=== PATIENT | male | born 1960 | race Caucasian/White ===

== ENCOUNTER 2020-05-01 10:37 | Outpatient (CLI) | payer BC, SELFPAY ==
--- NOTE | ~2020-05-01 | XR_ITS ---
EXAMINATION: XR shoulder RT min 2V EXAM DATE: 05/01/2020 11:06 INDICATION: No known recent injury provided at this time. Pain of the right shoulder. TECHNIQUE: The following right shoulder projections obtained: frontal projection with internal rotati on, frontal projection with external rotation, Grashey, and scapular Y view (4+ views). There is no prior study for comparison. FINDINGS: No evidence of right shoulder rotator cuff calcific tendinosis. There is mild acromioclavi cular joint primary osteoarthritis. There are no acute fractures or dislocations identified. There i s no subcutaneous gas. The soft tissue is unremarkable. There are no radiopaque foreign bodies. IMPRESSION: Mild right acromioclavicular joint osteoarthritis. Reviewed, dictated and finalized at location A.
--- NOTE | ~2020-05-01 | XR_ITS ---
EXAMINATION: XR_CERV2-3V_CR EXAM DATE: 05/01/2020 11:06 INDICATION: Cervicalgia. Right-sided neck, shoulder pain. TECHNIQUE: Cervical spine frontal, lateral, lateral swimmers, and open-mouth odontoid projections. There is no prior study for comparison. FINDINGS: There is no evidence of acute cervical fracture. The odontoid process is intact. Pre-dens space is normal. Prevertebral soft tissue is normal. There are no soft tissue abnormalities identi fied. There is moderate disc disease at C5-6, mild at C4-5 and C6-7. There is mild to moderate cervi rickie facet and uncovertebral joint arthropathy. The vertebral bodies are aligned in the AP dimension. IMPRESSION: 1. Mild to moderate cervical spondylosis. Reviewed, dictated and finalized at location A.
== END 2020-05-01 10:38 | disposition home or self-care (01) ==
LOC: ANHIMG 10:43
PROVIDERS: PCP Internal Medicine; Visit Provider Nurse Practitioner
DX: M54.2 Cervicalgia (principal); M25.511 Pain in right shoulder; M19.011 Primary osteoarthritis, right shoulder; M47.812 Spondylosis without myelopathy or radiculopathy, cervical region
CPT/HCPCS: 72040; 73030

== ENCOUNTER 2020-05-08 16:03 | Outpatient (CLI) | payer BC, SELFPAY ==
--- NOTE | ~2020-05-08 | MR_ITS ---
EXAMINATION: MR shoulder RT wo con DATE: 05/08/2020 17:13 INDICATION: Right shoulder pain TECHNIQUE: Magnetic resonance imaging (MRI) of the right shoulder was performed without intravenous c ontrast. Sequences included axial PD-weighted FS FSE, coronal oblique PD-weighted FS FSE, coronal obl ique T2-weighted FS FSE, sagittal PD-weighted FS FSE, and sagittal T1-weighted SE. COMPARISON: Right shoulder radiographs dated 05/01/2020 FINDINGS: Coracoacromial arch: The acromion undersurface is curved in morphology (type II). The coracoacromial ligament is normal. M ild acromioclavicular osteoarthritis. Rotator cuff: Moderate supraspinatus and mild infraspinatus tendinopathy. Small full-thickness tear of the anterior supraspinatus tendon measuring 5 mm AP with distal tear margin approximately 1 cm from the superior facet footplate. The tear defect measures approximately 5 mm medial collateral with fluid signal inte rspersed with lax appearing irregular frayed tendon material. The teres minor tendon is normal. Sever e subscapularis tendinopathy. There is a high-grade partial if not full-thickness tear involving the cephalad two thirds of the subscapularis tendon the thickened and frayed medial tear margin is dated approximately 1 cm from the lesser tuberosity footplate. There is intervening lax appearing frayed te ndon material which appears to remain attached to the lesser tuberosity which is of doubtful function al integrity. There is no asymmetric fatty atrophy of the rotator cuff muscles. There is however epim ysial edema extending along both the subscapularis and supraspinatus muscle bellies suggesting rotato r cuff tear is relatively acute consistent with given history of a fall one week prior. Biceps tendon, glenoid labrum and glenohumeral cartilage: Long head of the biceps tendon is normal. There is a tear of the superior to posterior superior gleno id labrum. Mild partial thickness cartilage loss along the cephalad half of the glenoid with smooth c hondral surface. Cartilage the humeral head appears relatively preserved. Fluid: Moderate-sized glenohumeral joint effusion. Small amount of fluid in the subacromial/subdeltoid and s ubcoracoid bursae likely representing extravasation of joint fluid through the full-thickness rotator cuff tears. No loose osteochondral bodies. Small amount of fluid in the subacromial/subdeltoid bursa consistent with mild bursitis. Bones: Normal marrow signal with no edema, fracture or abnormal marrow replacing process. Mild cystic change at the posterior facet of the greater tuberosity likely related to a more chronic rotator cuff disea se.. IMPRESSION: 1. Supraspinatus and subscapularis tendinopathy with small full-thickness tear at the critical zone o f the anterior supraspinatus tendon and high-grade partial or complete tear of the cephalad two third s of the subscapularis tendon. There is associated muscular edema and no fatty atrophy which could be consistent with a relatively recent injury. 2. SLAP tear at the superior to posterior superior glenoid labrum. 3. Moderate sized likely reactive glenohumeral joint effusion with fluid in the subacromial/subdeltoi d and subcoracoid bursae likely extending through the full-thickness rotator cuff tear. Reviewed, dictated and finalized at location A. IMPRESSION: 1. Supraspinatus and subscapularis tendinopathy with small full-thickness tear at the critical zone of the anterior supraspinatus tendon and high-grade partia l or complete tear of the cephalad two thirds of the subscapularis tendon. Ther e is associated muscular edema and no fatty atrophy which could be consistent w ith a relatively recent injury. 2. SLAP tear at the superior to posterior superior glenoid labrum. 3. Mod
== END 2020-05-08 16:04 | disposition home or self-care (01) ==
PROVIDERS: PCP Internal Medicine; Visit Provider Nurse Practitioner
DX: M25.411 Effusion, right shoulder (principal); S43.431A Superior glenoid labrum lesion of right shoulder, initial encounter; X58.XXXA Exposure to other specified factors, initial encounter
CPT/HCPCS: 73221

== ENCOUNTER 2022-02-09 08:34 | Outpatient (CLI) | payer OTHER, SELFPAY ==
[2022-02-09 08:53] LABS: Basophils Absolute Auto 0.1 K/mm3 (0.0-0.1); Basophils Percent Auto 1.5 % (0.2-1.2); Eosinophils Absolute Auto 0.2 K/mm3 (0-0.3); Hematocrit 44.7 % (42.0-52.0); Hemoglobin 14.8 g/dL (14.0-18.0); Immature Granulocyte Absolute 0.01 K/mm3 (0.00-0.031); Immature Granulocyte Percent A 0.2 % (0-0.5); Lymphocytes Absolute Auto 1.63 K/mm3 (0.9-3.2); Lymphocytes Percent Auto 34.5 % (18.3-44.2); Mean Corpuscular HGB Conc 33.1 g/dl (32-36); Mean Corpuscular Hemoglobin 32.5 pg (26-34); Mean Platelet Volume 9.9 fl (7.4-10.4); Monocytes Absolute Auto 0.7 K/mm3 (0.1-0.6); Monocytes Percent Auto 14.2 % (2.6-8.5); Neutrophils Absolute Auto 2.2 K/mm3 (1.3-6.7); Neutrophils Percent Auto 45.6 % (45.5-73.1); Platelet Count Result 271 k/mm3 (150-375); Red Blood Count 4.56 M/mm3 (4.6-6.20); Red Cell Distribution Width 12.7 % (11.5-14.5); White Blood Count 4.7 K/mm3 (4.5-10.0)
[2022-02-09 09:04] LABS: Alanine Aminotransferase 33 U/L (4-50); Albumin Level 4.2 g/dL (3.5-5.1); Alkaline Phosphatase 86 U/L (38-126); Anion Gap 6 mmol/L (8-16); Aspartate Amino Transferase 40 U/L (17-59); Bilirubin,Total 0.6 mg/dL (0.2-1.3); Blood Urea Nitrogen 16 mg/dL (9-20); Carbon Dioxide 28 mmol/L (22-30); Chloride 106 mmol/L (98-107); Cholesterol 225 mg/dL (0-200); Estimated Glomerular Filt Rate > 60; Glucose 105 mg/dL (65-110); HDL Direct 58 mg/dL; Potassium 4.4 mmol/L (3.4-5.0); Sodium 140 mmol/L (137-145); Triglycerides 72 mg/dL (<150)
[2022-02-09 09:15] LABS: LDL Cholesterol Direct 122 mg/dL
[2022-02-09 09:35] LABS: Prostate Specific Antigen 1.3 ng/mL (< OR = 4.0)
== END 2022-02-09 08:35 | disposition home or self-care (01) ==
LOC: ANHLAB 08:37
PROVIDERS: PCP Internal Medicine; Visit Provider Nurse Practitioner
DX: Z13.220 Encounter for screening for lipoid disorders (principal); Z12.5 Encounter for screening for malignant neoplasm of prostate; K27.9 Peptic ulcer, site unspecified, unspecified as acute or chronic, without hemorrhage or perforation
CPT/HCPCS: 36415; 80053; 80061; 84153; 85025; G0103

== ENCOUNTER 2022-08-22 19:32 | Observation (INO) | payer OTHER, SELFPAY ==
--- NOTE | ~2022-08-22 | CT_ITS ---
EXAMINATION: CT abdomen pelvis w con DATE: 08/22/2022 21:10 INDICATION: Abdominal pain TECHNIQUE: Computed tomography (CT) of the abdomen and pelvis was performed with 100 mL Omnipaque-350 intravenous contrast. Automated exposure control and iterative reconstruction technique were employe d. The dose-length product was 865.58 mGy-cm. COMPARISON: None FINDINGS: Atelectasis in the bilateral lower lobes. Heart size is normal. Atherosclerotic coronary artery calci fication. No pericardial or pleural effusion. A couple subcentimeter low-attenuation hepatic cysts. D ecompressed gallbladder, spleen, pancreas, left kidney and bilateral adrenal glands are normal. Subce ntimeter cyst at the lower pole of the right kidney. Bladder is normal. Prostatomegaly. Multiple phle boliths in the pelvis. Bowels including the appendix are normal. No free intraperitoneal gas or fluid . No pathologically enlarged abdominal or pelvic lymphadenopathy. Atherosclerotic calcifications alycia g the normal caliber abdominal aorta and extending to the bilateral iliac arteries. T11 hemangioma. N o acute osseous abnormality. IMPRESSION: 1. No fracture or acute intra-abdominal/pelvic process. Reviewed, dictated and finalized at location A.
--- NOTE | ~2022-08-22 | XR_ITS ---
EXAMINATION: XR chest 1V portable DATE: 08/22/2022 21:25 INDICATION: Unsteady gait 4 days post fall TECHNIQUE: frontal view of the chest was obtained. COMPARISON: Chest radiograph dated 08/19/[address] dated 08/22/2022 FINDINGS: Mild streaky bibasilar atelectasis. A few scattered tiny calcified pulmonary nodules consistent with old granulomatous disease. No other airspace opacities, pulmonary edema, pleural effusion or pneumoth orax. The cardiomediastinal silhouette is normal. Visualized bones and soft tissues are unremarkable. IMPRESSION: 1. Mild bibasilar atelectasis. Reviewed, dictated and finalized at location A.
--- NOTE | ~2022-08-22 | CT_ITS ---
EXAMINATION: CT brain wo con DATE: 08/22/2022 21:01 INDICATION: Fall with loss of consciousness presenting with headache nausea and dizziness TECHNIQUE: Computed tomography (CT) of the head was performed without intravenous contrast. Sagittal and coronal reconstructions were performed. The mA was adjusted according to patient size. Iterative reconstruction technique was employed. The dose-length product was 605.33 mGy-cm. COMPARISON: head CT and brain MR dated 05/20/2017 FINDINGS: No fracture. No acute intracranial hemorrhage, acute infarction or abnormal extra axial fluid collect ion. Ventricles are normal and symmetric. No mass/mass effect. Mild mucosal thickening in the bilater al ethmoid, right maxillary and left sphenoid sinuses. The orbits and mastoid air cells are normal. IMPRESSION: 1. No fracture or acute intracranial process. Reviewed, dictated and finalized at location A.
[2022-08-22 19:53] VITALS: BP 141/80; PULSE 70; RESP 16; TEMP 36.6; O2SAT 97
--- NOTE | 2022-08-22 20:20 | ED.GENADULT ---
HPI - General Adult General Chief complaint: Head Injury Stated complaint: Fall on Friday, diagnosed w/concussion, n/v/h Time Seen by Provider: 08/22/22 20:14 Source: RN notes reviewed History of Present Illness HPI narrative: Patient presents emergency department from home for headache. Patient states that on 08/19/2022 he was approximately 4 rungs up on a ladder when he fell backwards landing on his back and striking his head per the family he was knocked unconscious at that time following this he was taken to [facility] where per the family and the patient he had a CT of his head cervical spine thoracic spine and lumbar spine they are all negative at that time the patient was discharged with prescription for hydrocodone and Zofran states that since that time he has had persistent headaches in the posterior aspect of his head as well as nausea and vomiting and feeling unsteady on his feet he states he last took the [place] around noon today as well as the Zofran he denies any vision changes he denies any numbness or tingling in the extremities denies any chest pain or shortness of breath states he feels generally sore throughout his body patient states when he gets up to ambulate he feels dizzy Related Data Home Medications Medication Instructions Recorded Confirmed omeprazole magnesium 20 mg 20 mg PO DAILY 11/03/19 08/23/22 tablet,delayed release (Prilosec OTC) Allergies Allergy/AdvReac Type Severity Reaction Status Date / Time No Known Allergies Allergy Unknown Verified 08/22/22 20:00 Review of Systems Review of Systems: Gen.: Denies fevers or chills Eyes: Denies eye pain or visual change ENT: Denies congestion Respiratory: Denies shortness of breath or cough CV: Denies chest pain or palpitations GI: Denies abdominal pain reports nausea and vomiting denies burning, urgency, frequency or hematuria Musculoskeletal: reports generalized muscle pains Neuro: See HPI Skin: Denies rash Except as documented, all other systems reviewed and negative PMFSH Past Medical History Medical History Arthritis Hyperlipidemia Joint pain Knee pain Peptic ulcer disease Rupture of ligament Surgical History Surgical History Status post surgical removal of malignant neoplasm of skin Minor Cancer removed 2013 Social History Social History Smoking status: Never smoker Smoking end date: 11/24/77 Alcohol intake: never Drinks per week: 3 Alcohol use details: Pt drinks daily. Substance use: never Spiritual care concerns: No Exam Narrative: APPEARANCE: Well appearing, no apparent distress, well-nourished. HEENT: normocephalic atraumtaic. TMs clear bilaterally. Oral mucosa moist. No facial tenderness EYES: PERRL NECK: Supple. No midline tenderness to palpation. Tender palpation bilateral [place] muscles C5-7 RESPIRATORY: No respiratory distress. Clear to auscultation bilaterally CARDIOVASCULAR: Regular rate and rhythm without murmurs rubs or gallops. ABDOMINAL: Soft, nontender, nondistended, no rebound or guarding MUSCULOSKELETAl: Moves all extremities. No tenderness to palpation of bilateral upper and lower extremities. No clubbing cyanosis or edema Back: No midline thoracic or lumbar tenderness to palpation NEURO: Awake and alert ?3. Follows commands. Speech normal. No focal deficits. SKIN:: Warm, dry. Normal Color Course Course Emergency Course: Reviewed old records in chart the patient had a CT scan of the head C-spine thoracic spine and lumbar spine were all negative following fall Patient was road testing ER continues to be dizzy unstable on his feet notes nausea and headache patient already on [place] and Zofran at home at this time will admit for postconcussive symptoms Discussed with Dr. Pichardo presentation work-up agrees admission
[2022-08-22] MEDS: SODIUM CHLORIDE 0.9% IV 1,000 ML 999 ML IV CONT (20:31)
[2022-08-22] MEDS: ONDANSETRON INJ 4 MG/2 ML VIAL IV PUSH (20:31)
[2022-08-22 20:32] LABS: Basophils Absolute Auto 0.1 K/mm3 (0.0-0.1); Eosinophils Absolute Auto 0.3 K/mm3 (0-0.3); Eosinophils Percent Auto 4.6 % (0-4.4); Hematocrit 41.9 % (42.0-52.0); Hemoglobin 13.9 g/dL (14.0-18.0); Immature Granulocyte Absolute 0.02 K/mm3 (0.00-0.031); Immature Granulocyte Percent A 0.3 % (0-0.5); Lymphocytes Absolute Auto 1.79 K/mm3 (0.9-3.2); Lymphocytes Percent Auto 29.3 % (18.3-44.2); Mean Corpuscular HGB Conc 33.2 g/dl (32-36); Mean Corpuscular Hemoglobin 32.7 pg (26-34); Mean Corpuscular Volume 98.6 fl (80-100); Mean Platelet Volume 10.1 fl (7.4-10.4); Monocytes Absolute Auto 0.8 K/mm3 (0.1-0.6); Monocytes Percent Auto 12.8 % (2.6-8.5); Neutrophils Absolute Auto 3.2 K/mm3 (1.3-6.7); Platelet Count Result 261 k/mm3 (150-375); Red Blood Count 4.25 M/mm3 (4.6-6.20); Red Cell Distribution Width 12.6 % (11.5-14.5); White Blood Count 6.1 K/mm3 (4.5-10.0)
[2022-08-22 20:42] LABS: Alanine Aminotransferase 31 U/L (6-50); Albumin Level 3.7 g/dL (3.5-5.1); Alkaline Phosphatase 75 U/L (38-126); Anion Gap 10 mmol/L (8-16); Aspartate Amino Transferase 27 U/L (17-59); Bilirubin,Total 0.3 mg/dL (0.2-1.3); Blood Urea Nitrogen 13 mg/dL (9-20); Calcium 8.8 mg/dL (8.4-10.2); Carbon Dioxide 26 mmol/L (22-30); Chloride 106 mmol/L (98-107); Estimated CRCL calculation 79 ml/min; Estimated Glomerular Filt Rate > 60; Glucose 104 mg/dL (65-110); INR 1.1; Potassium 3.7 mmol/L (3.4-5.0); Prothrombin Time 13.5 Seconds (11.1-14.7); Sodium 142 mmol/L (137-145)
[2022-08-22 21:30] VITALS: BP 132/74; PULSE 64; RESP 16; O2SAT 100
[2022-08-22 21:51] LABS: Appearance Urine Clear (Clear); Bilirubin Urine Negative (Negative); Blood Urine Negative (Negative); Color Urine Yellow (Yellow); Glucose Urine UA Negative (Negative); Ketones Urine Negative (Negative); Leukocyte Esterase Ur Negative LEU/UL (Negative); Nitrate Urine Negative (Negative); Protein Urine Negative (Negative); Urobilinogen Urine 0.2 mg/dL (<2.0); pH Urine 6.5 (5.0-9.0)
[2022-08-22 21:53] LABS: Add Urine Microscopic? NO
[2022-08-22] MEDS: MORPHINE SULFATE (*CRX) 4 MG/ML INJ IV PUSH (21:59)
[2022-08-22 22:27] LABS: SARS-CoV-2 RNA PCR Negative
[2022-08-22 22:35] VITALS: BP 118/68; PULSE 58; RESP 16; O2SAT 99
[2022-08-22 23:00] VITALS: BP 126/78; PULSE 74; RESP 16; TEMP 36.4; O2SAT 100
[2022-08-22] MEDS: MECLIZINE HCL 25 MG TABLET PO (23:10)
[2022-08-23] VITALS: BP 116/68; PULSE 76; RESP 16; TEMP 36.3; O2SAT 100
[2022-08-23 01:06] VITALS: BP 122/68; PULSE 70; RESP 16; TEMP 36.5; O2SAT 98
[2022-08-23 01:20] VITALS: BMI 23.8
[2022-08-23 01:25] VITALS: BP 128/68; PULSE 52; RESP 18; TEMP 35.9; O2SAT 99
[2022-08-23] MEDS: SODIUM CHLORIDE 0.9% IV 1,000 ML 100 ML IV CONT (01:33)
[2022-08-23] MEDS: traMADol HCL (*CRX) 50 MG TABLET PO (02:15)
[2022-08-23 05:48] VITALS: BP 130/84; PULSE 56; RESP 20; TEMP 36.2; O2SAT 99
[2022-08-23] MEDS: PANTOPRAZOLE 40 MG TABLET PO (08:28)
--- NOTE | 2022-08-23 08:28 | PM.IMHP ---
H&P: HPI History of Present Illness Date/Time: 08/23/22 08:28 Chief Complaint: Headache, nausea & vomiting. [facility] Past Medical History Medical History Arthritis Hyperlipidemia Joint pain Knee pain Peptic ulcer disease Rupture of ligament Surgical History Surgical History Status post surgical removal of malignant neoplasm of skin Minor Cancer removed 2013 Social History Social History Smoking status: Never smoker Smoking end date: 11/24/77 Alcohol intake: never Drinks per week: 3 Alcohol use details: Pt drinks daily. Substance use: never Spiritual care concerns: No Meds Home Medications and Allergies Home Medications Medication Instructions Recorded Confirmed Type omeprazole magnesium 20 mg 20 mg PO DAILY 11/03/19 08/23/22 History tablet,delayed release (Prilosec OTC) celecoxib 200 mg capsule (Celebrex) 200 mg PO DAILY #90 caps 08/09/22 08/23/22 Rx hydrocodone 5 mg-acetaminophen 325 1 tablet PO Q8H PRN pain #10 tabs 08/22/22 08/23/22 Rx mg tablet Allergies Allergy/AdvReac Type Severity Reaction Status Date / Time No Known Allergies Allergy Unknown Verified 08/22/22 20:00 Vital Signs Vital Signs - 24 hr 08/22/22 19:53 08/22/22 22:35 08/22/22 21:30 Temperature 97.9 F Pulse Rate 70 58 L 64 Respiratory Rate 16 16 16 Blood Pressure 141/80 H 118/68 132/74 Pulse Oximetry 97 99 100 Oxygen Delivery Room Air 08/22/22 23:00 08/23/22 00:00 08/23/22 01:06 Temperature 97.6 F 97.4 F L 97.7 F Pulse Rate 74 76 70 Respiratory Rate 16 16 16 Blood Pressure 126/78 116/68 122/68 Pulse Oximetry 100 100 98 Oxygen Delivery 08/23/22 01:25 08/23/22 05:48 Temperature 96.6 F L 97.2 F L Pulse Rate 52 L 56 L Respiratory Rate 18 20 Blood Pressure 128/68 130/84 Pulse Oximetry 99 99 Oxygen Delivery H&P: Results Labs Labs: Short CBC 08/22/22 Range/Units 20:26 WBC 6.1 (4.5-10.0) K/mm3 Hgb 13.9 L (14.0-18.0) g/dL Hct 41.9 L (42.0-52.0) % Plt Count 261 (150-375) k/mm3 BMP 08/22/22 20:26 Sodium 142 Potassium 3.7 Chloride 106 Carbon Dioxide 26 BUN 13 Creatinine 0.90 Glucose 104 Calcium 8.8 Liver Function 08/22/22 Range/Units 20:26 Total Bilirubin 0.3 (0.2-1.3) mg/dL AST 27 (17-59) U/L ALT 31 (6-50) U/L Alkaline Phosphatase 75 (38-126) U/L Albumin 3.7 (3.5-5.1) g/dL Urine 08/22/22 Range/Units 21:40 Urine Color Yellow (Yellow) Urine Appearance Clear (Clear) Urine pH 6.5 (5.0-9.0) Ur Specific [place] 1.010 (1.001-1.035) Urine Protein Negative (Negative) mg/dL Urine Glucose (UA) Negative (Negative) mg/dL
--- NOTE | 2022-08-23 09:07 | WPDNEURCNPN ---
Assessment and Plan Assessment and plan (1) Fall: Code(s): W19.XXXA - Unspecified fall, initial encounter Status: Acute (2) Nausea and vomiting: Code(s): R11.2 - Nausea with vomiting, unspecified Status: Acute (3) Dizziness: Code(s): R42 - Dizziness and giddiness Status: Acute Plan Jayme Cody is a 62 year old male with a history of arthritis, HLD who presented yesterday after sustaining a fall and subsequently developing severe headache, dizziness, and balance issues. These symptoms are likely related to post-concussive syndrome. However, given the positional nature of his symptoms and history of trauma to his back, will need to evaluate for intracranial hypotension secondary to spinal CSF leak. - Obtain CT myelogram of complete spine as outpatient - Avoid treating headaches with narcotics; recommend using Naproxen - If symptoms persist over the next few weeks, will have patient follow-up in [facility] Neurology clinic Consult date: 08/23/22 Time Seen: 09:07 Reason for consult: Headache HPI: Jayme Cody is a 62 year old male with a history of arthritis, HLD who presented yesterday after sustaining a fall and subsequently developing severe headache. On 08/19, patient fell backwards from his ladder and landed on his back as well as hitting his head on the ground. There was loss of consciousness which was reportedly brief although unclear how long it actually lasted. [facility] was [facility] where he had a CT of his complete spine which were all negative for acute process. He was discharged with [place] and Zofran. Since discharge, he has had a persistent headache in the back of his head associated with nausea, vomiting, and balance issues. He feels that his symptoms get worse when he gets up to ambulate. Due to the persistent nature of his symptoms, he presented to [place] ED for evaluation. His CT head was negative for acute process. He was subsequently admitted for treatment of his symptoms. Since yesterday headache and balance issues have improved. Review of Systems Constitutional: Constitutional: Reports no additional constitutional complaints and Denies weakness Eyes: Eyes: Reports no additional eye complaints ENT: Reports system reviewed and no additional complaints, except as documented, Reports Normal hearing present and Denies tinnitus Cardiovascular: Cardiovascular: Reports no additional cardiovascular complaints Respiratory: Respiratory: Reports no additional respiratory complaints Gastrointestinal: Gastrointestinal: Reports nausea Genitourinary: Genitourinary: Reports no additional male genitourinary complaints Musculoskeletal: Musculoskeletal: Reports back pain Integumentary/Breasts: Skin/Breast: Reports system reviewed and no additional complaints, except as docu Neurologic: Reports vertigo and Reports headache(s) Psychiatric: Psychiatric: Reports no additional psychiatric complaints [facility] Past Medical History Medical History Arthritis Hyperlipidemia Joint pain Knee pain Peptic ulcer disease Rupture of ligament Surgical History Surgical History Status post surgical removal of malignant neoplasm of skin Minor Cancer removed 2013 Social History Social History Smoking status: Never smoker Smoking end date: 11/24/77 Alcohol intake: never Drinks per week: 3 Alcohol use details: Pt drinks daily. Substance use: never Spiritual care concerns: No Meds Home Medications and Allergies Home Medications Medication Instructions Recorded Confirmed Type omeprazole magnesium 20 mg 20 mg PO DAILY 11/03/19 08/23/22 History tablet,delayed release (Prilosec OTC) celecoxib 200 mg capsule (Celebrex) 200 mg PO DAILY #90 caps 08/09/22 08/23/22 Rx hydrocodone 5 mg-acetaminophen 325 1 table
[2022-08-23] MEDS: ACETAMINOPHEN/ASPIRIN/CAFFEINE 250-250-65 MG TABLET 1 TABLET PO (11:29)
--- NOTE | 2022-08-23 12:50 | PM.SD2 ---
Same Day Admit/Disch: HPI History of Present Illness Chief complaint: Headache,Nausea & Vomiting, Fall Narrative: Jayme Cody is a 72 yo male with hyperlipidemia, peptic ulcer disease and arthritis. He presented to the ED, from home, for evaluation of headache. He reports on 08/19/2022, he was approximately 4 rungs up on a ladder when he fell backwards landing on his back and striking his head. Per his family, he was knocked unconscious at that time. He was taken to [facility] where he reportedly had a head CT, as well as CTs of his cervical, thoracic, and lumbar spine that were all negative. He was discharged home with his and a prescription for PO hydrocodone/acetaminophen and Zofran as needed. Upon my assessment, the patient is sitting up in bed and irritable at this time. He provides some details of these events, but is overall providing brief answers to most questions. He denies nausea or emesis at this time. His headache in mild and not associated with focal changes. Medical information was obtained from ED and primary care records. The patient reported persistent headaches in the posterior aspect of his head since he was evaluated following his fall on 08/19/22. He reports associated, nausea, vomiting, dizziness with ambulation, and feeling unsteady on his feet. He has been taking [place] for headaches and Zofran PO with minimal relief. He denies vision changes, numbness or tingling in the extremities, chest pain, shortness of breath, rhinorrhea, or paralysis. He has aching pains to his whole body. In the ED, his vitals were stable. CBC, CMP and UA were unremarkable. CT head, CT abdomen/pelvis with contrast and chest x-ray were without acute findings. He was treated with 1 liter NS bolus, acetaminophen 1 gram, morphine 4 mg IV, meclizine 25 mg, phenergan 12.5 mg and zofran 4 mg. Neurology was consulted in the ED and agreeable to see the patient. He was referred for observation for further evaluation. [facility] Past Medical History Medical History Arthritis Hyperlipidemia Joint pain Knee pain Peptic ulcer disease Rupture of ligament Surgical History Surgical History Status post surgical removal of malignant neoplasm of skin Minor Cancer removed 2013 Social History Social History Smoking status: Never smoker Smoking end date: 11/24/77 Alcohol intake: never Drinks per week: 3 Alcohol use details: Pt drinks daily. Substance use: never Spiritual care concerns: No Same Day Admit/Disch: Med Pre-admit Medications Home Medications Medication Instructions Recorded Confirmed Type omeprazole magnesium 20 mg 20 mg PO DAILY 11/03/19 08/23/22 History tablet,delayed release (Prilosec OTC) celecoxib 200 mg capsule (Celebrex) 200 mg PO DAILY #90 caps 08/09/22 08/23/22 Rx hydrocodone 5 mg-acetaminophen 325 1 tablet PO Q8H PRN pain #10 tabs 08/22/22 08/23/22 Rx mg tablet ondansetron 4 mg disintegrating 4 mg PO Q4H PRN nausea and 08/23/22 Rx tablet vomiting #10 tabs Exam Narrative: General:?No acute distress. Nontoxic appearing. Well-developed adult male sitting up in bed. HEENT:?Normocephalic. Atraumatic. PERRL. EOM intact. Sclera anicteric.?Oral mucosa pink and most.?grossly normal hearing. Tongue midline. Oropharynx grossly normal. Nares patent without discharge. Neck:??Supple without lymphadenopathy.? Thyroid without nodularity. No obvious JVD. Neck nontender to palpation. Respiratory:?RR unlabored at rest. Lungs clear to auscultation bilaterally without wheezing, rhonchi or rales. Cardiovascular:??Normal S1 and S2 regular rate and rhythm. No murmurs, gallops or rubs. Gastrointestinal:??Abdomen is soft, nontender, and nondistended with positive bowel sounds. No guarding or suprapubic tenderness. Skin:??Warm and dry.? No rash or lesions
== END 2022-08-23 13:00 | disposition home or self-care (01) ==
LOC: ANHED 20:49 → ANH3MEDSUR 08-23 01:26
PROVIDERS: Admitting Provider Internal Medicine; Emergency Provider Emergency Medicine; PCP Internal Medicine; Visit Provider Nurse Practitioner Family
DX: S06.0X9A Concussion with loss of consciousness of unspecified duration, initial encounter (principal); S00.93XA Contusion of unspecified part of head, initial encounter; S16.1XXA Strain of muscle, fascia and tendon at neck level, initial encounter; W11.XXXA Fall on and from ladder, initial encounter; J98.11 Atelectasis; I25.10 Atherosclerotic heart disease of native coronary artery without angina pectoris; I25.84 Coronary atherosclerosis due to calcified coronary lesion; D18.09 Hemangioma of other sites; E78.5 Hyperlipidemia, unspecified; K27.9 Peptic ulcer, site unspecified, unspecified as acute or chronic, without hemorrhage or perforation; M19.90 Unspecified osteoarthritis, unspecified site; Z20.822 Contact with and (suspected) exposure to COVID-19; Z72.89 Other problems related to lifestyle; Z79.891 Long term (current) use of opiate analgesic; Z79.1 Long term (current) use of non-steroidal anti-inflammatories (NSAID); Z79.899 Other long term (current) drug therapy
CPT/HCPCS: 36415; 70450; 71045; 74177; 80053; 81003; 85025; 85610; 85730; 96365; 96375; 99285; A9270; C9803; G0378; J0131; J2270; J2405; J7030; Q9967; U0003; U0005

== ENCOUNTER 2023-06-22 14:21 | Emergency (ER) | payer OTHER, SELFPAY ==
--- NOTE | ~2023-06-22 | XR_ITS ---
EXAM: XR knee RT 3V DATE: 06/22/2023 14:48 HISTORY: Fall, right knee pain/swelling . COMPARISON: 05/08/2004, images only. FINDINGS: Normal mineralization. No fracture or dislocation. No lytic or blastic lesion. Mild tricom partmental osteoarthritis. Large volume joint fluid. No erosion or periosteal change. Soft tissues wi thin normal limits. IMPRESSION: No acute osseous finding in the right knee. Large right knee joint effusion. Reviewed, dictated and finalized at location K.
[2023-06-22 14:31] VITALS: BP 134/86; PULSE 75; RESP 16; TEMP 36.8; O2SAT 98
--- NOTE | 2023-06-22 14:31 | ED.LOWEXIN ---
HPI - Extremity Injury (Lower) General Chief Complaint: Extremity Injury, Lower Stated Complaint: rt knee inj Source: patient, family and RN notes reviewed History of Present Illness HPI Narrative: 63-year-old male presents to Urgent Care with at side. Patient states yesterday he was getting out the back of a truck when he slipped and fell onto his left knee. Patient states at the time his right knee stayed in the truck causing him to injury it. Pt states he felt a pop in his right knee and felt the pain radiate up his lateral thigh and down his lateral lower leg. Pt reports associated pain with flexion and applied pressure with walking. Pt presents with crutches from home. Pt denies any numbness, tingling, head injury, or other injury during the fall. Pt has been elevating and icing the knee since. Pt did take 400 mg of ibuprofen at home. Related Data Home Medications Medication Instructions Recorded Confirmed omeprazole magnesium 20 mg 20 mg PO DAILY 11/12/22 06/22/23 tablet,delayed release (Prilosec OTC) Allergies Allergy/AdvReac Type Severity Reaction Status Date / Time No Known Allergies Allergy Unknown Verified 06/22/23 14:33 Review of Systems Review of Systems: CONSTITUTIONAL: Denies fever, chills, or sweats. EYES: Denies visual changes, redness, or discharge. ENT: Denies otalgia and sore throat CARDIOVASCULAR: Denies chest pain, palpitations, or edema. RESPIRATORY: Denies cough or dyspnea. GASTROINTESTINAL: Denies abdominal pain, nausea, vomiting, or diarrhea. GENITOURINARY: Denies dysuria or hematuria. SKIN: Denies rash or itching. MUSCULOSKELETAL: right knee pain NEUROLOGIC: Denies headache, numbness, or weakness. Pertinent positives per HPI. [facility] Past Medical History Medical History Arthritis Hyperlipidemia Joint pain Knee pain Peptic ulcer disease Rupture of ligament Surgical History Surgical History Status post surgical removal of malignant neoplasm of skin Minor Cancer removed 2013 Social History Social History (Updated 11/12/22 @ 07:42 by Jazmine Sloan CMA) Smoking status: Never smoker Smoking end date: 11/24/77 Alcohol intake: never Drinks per week: 3 Alcohol use details: Pt drinks daily. Substance use: never Lack of Transportation: No Lack of Food: Never True Current Housing: I Have Housing Concerned About Future Housing: No Difficulty Paying Gas/Electric Bills: No Difficulty Paying for Meds: No Currently Unemployed: No Education: Trade/Vocational Certificate Difficulty w/ Childcare or Family Care: No Spiritual care concerns: No Comments At the time of my signature, I reviewed and agree with the nursing past medical, surgical, social, and family history. There is no relevant family history pertinent to the patient complaint. Exam Narrative: GENERAL: This is a well-nourished, well-developed patient, in no apparent distress. HEAD: normocephalic, atraumatic. EYES: Sclera clear/white. Vision is grossly intact. EARS: External ears normal, auditory canals clear and without drainage. Hearing grossly intact. NOSE: External nose normal with no obvious nasal discharge, nares without redness, no rhinorrhea. THROAT: Mucous membranes moist, posterior pharynx clear. NECK: Neck supple, non-tender without lymphadenopathy, masses or thyromegaly. CARDIOVASCULAR: Regular rate RESPIRATORY: no respiratory distress SKIN: warm, intact with no suspicious lesions or rash, good texture and turgor. NEURO: awake, alert, and oriented to person, place and time. There were no obvious focal neurologic abnormalities. EXTREMITIES: Right knee tenderness over the lateral, superior aspect with swelling noted. Pt is able to flex the affected knee to 90 degrees. Pt is able to extend the affected knee with some assistance. Course
== END 2023-06-22 15:18 | disposition home or self-care (01) ==
PROVIDERS: Emergency Provider Nurse Practitioner Family; PCP Internal Medicine
DX: S83.91XA Sprain of unspecified site of right knee, initial encounter (principal); W17.89XA Other fall from one level to another, initial encounter; Z87.891 Personal history of nicotine dependence; M19.90 Unspecified osteoarthritis, unspecified site; E78.5 Hyperlipidemia, unspecified
CPT/HCPCS: 73562; 99213; G0463; L1830

== ENCOUNTER 2023-11-19 11:00 | Emergency (ER) | payer OTHER, SELFPAY ==
[2023-11-19 11:06] VITALS: BP 138/91; PULSE 83; RESP 16; TEMP 36.5; O2SAT 98
--- NOTE | 2023-11-19 11:20 | ED.URI ---
HPI - URI/Sore Throat General Chief Complaint: Upper Respiratory Infection Stated Complaint: SORE THROAT/CLOGGED EARS/NASAL CONGESTION Time Seen by Provider: 11/19/23 11:20 Source: patient and RN notes reviewed Mode of arrival: ambulatory Limitations: no limitations History of Present Illness HPI Narrative: 63-year-old male presented for complaint of sinus pressure and postnasal drainage, sore throat, pressure in face and teeth, cough, headache and ear pressure. Symptoms for about 3 weeks. Taking Sudafed for symptoms. He denies shortness of breath, wheezing, nausea, vomiting, fevers or chills. Tested negative at home fo covid today. MD elicited complaint: cough Related Data Home Medications Medication Instructions Recorded Confirmed omeprazole magnesium 20 mg 20 mg PO DAILY 11/12/22 11/19/23 tablet,delayed release (Prilosec OTC) Allergies Allergy/AdvReac Type Severity Reaction Status Date / Time No Known Allergies Allergy Unknown Verified 11/19/23 11:14 Review of Systems Review of Systems: CONSTITUTIONAL: Denies malaise, chills, sweats, fever EYES: Denies visual changes, redness, or discharge ENT: Reports rhinorrhea, congestion, sinus pain, otalgia, sore throat CARDIOVASCULAR: Denies chest pain, palpitations, edema RESPIRATORY: Reports cough, post nasal drainage. Denies dyspnea GASTROINTESTINAL: Denies abdominal pain, nausea, vomiting, diarrhea SKIN: Denies rash or itching MUSCULOSKELETAL: Denies myalgia NEUROLOGIC: Reports headache PMFSH Past Medical History Medical History Arthritis Hyperlipidemia Joint pain Knee pain Peptic ulcer disease Rupture of ligament Surgical History Surgical History Status post surgical removal of malignant neoplasm of skin Minor Cancer removed 2013 Family History Family History Unknown Hypertension Social History Social History Smoking status: Never smoker Smoking end date: 11/24/77 Alcohol intake: never Drinks per week: 3 Alcohol use details: Pt drinks daily. Substance use: never Lack of Transportation: No Lack of Food: Never True Current Housing: I Have Housing Concerned About Future Housing: No Difficulty Paying Gas/Electric Bills: No Difficulty Paying for Meds: No Currently Unemployed: No Education: Trade/Vocational Certificate Difficulty w/ Childcare or Family Care: No Gender identity (if verbalized by the patient): Male Spiritual care concerns: No Exam Narrative: GENERAL: mildly Ill-appearing, nontoxic no acute distress. HEAD: Normocephalic EYES: PERRLA, conjunctivae clear ENT: Mucous membranes moist. TMs pearly jackson with dull light reflex and clear effusion bilaterally; no tragal tenderness. Oropharynx not erythematous without lesions or exudate, no drooling, no hoarseness, no trismus, uvula midline. No tripod positioning, muffled voice, soft palate or pharyngeal wall bulging NECK: Supple. No lymphadenopathy CHEST: Clear to auscultation, breath sounds equal. No wheezing, rhonchi, rales, or stridor. No respiratory distress, speaks in full sentences. HEART: Regular rate and rhythm. No murmur heard. SKIN: Warm, dry, no rash. NEURO: Alert and oriented x3. PSYCH: Normal mood and affect Course Course Emergency Course: Patient is aware of diagnosis, understands and agrees to treatment plan. Anticipatory guidance given. Patient agrees to follow-up as directed and is aware of reasons to seek care at the emergency department. Portions of this record may have been created with voice recognition software Level of Care: Express Care Visit Vital Signs Vital signs: Vital Signs Temperature 97.7 F 11/19/23 11:06 Pulse Rate 83 11/19/23 11:06 Respiratory Rate 16 11/19/23 11:06 Blo
== END 2023-11-19 11:30 | disposition home or self-care (01) ==
PROVIDERS: Emergency Provider Nurse Practitioner Family; PCP Internal Medicine
DX: J32.9 Chronic sinusitis, unspecified (principal); Z87.891 Personal history of nicotine dependence; M19.90 Unspecified osteoarthritis, unspecified site; E78.5 Hyperlipidemia, unspecified; Z85.828 Personal history of other malignant neoplasm of skin
CPT/HCPCS: 99213; G0463

== ENCOUNTER 2024-07-27 07:59 | Outpatient (CLI) | payer MEDICARE, OTHER, SELFPAY ==
[2024-07-27 14:54] LABS: Basophils Absolute Auto 0.1 K/mm3 (0.0-0.1); Basophils Percent Auto 1.3 % (0.2-1.2); Eosinophils Absolute Auto 0.3 K/mm3 (0-0.3); Eosinophils Percent Auto 4.9 % (0-4.4); Hematocrit 45.1 % (42.0-52.0); Hemoglobin 14.4 g/dL (14.0-18.0); Immature Granulocyte Absolute 0.02 K/mm3 (0.00-0.031); Immature Granulocyte Percent A 0.3 % (0-0.5); Lymphocytes Absolute Auto 2.34 K/mm3 (0.9-3.2); Lymphocytes Percent Auto 37.9 % (18.3-44.2); Mean Corpuscular HGB Conc 31.9 g/dl (32-36); Mean Corpuscular Hemoglobin 32.1 pg (26-34); Mean Corpuscular Volume 100.7 fl (80-100); Mean Platelet Volume 11.3 fl (7.4-10.4); Monocytes Absolute Auto 0.8 K/mm3 (0.1-0.6); Neutrophils Absolute Auto 2.6 K/mm3 (1.3-6.7); Neutrophils Percent Auto 42.6 % (45.5-73.1); Platelet Count Result 235 k/mm3 (150-375); Red Blood Count 4.48 M/mm3 (4.6-6.20); Red Cell Distribution Width 13.1 % (11.5-14.5); White Blood Count 6.2 K/mm3 (4.5-10.0)
[2024-07-27 15:03] LABS: Alanine Aminotransferase 32 U/L (6-50); Albumin Level 3.7 g/dL (3.5-5.1); Alkaline Phosphatase 102 U/L (38-126); Anion Gap 9 mmol/L (4-12); Aspartate Amino Transferase 58 U/L (17-59); Bilirubin,Total 0.3 mg/dL (0.2-1.3); Blood Urea Nitrogen 16 mg/dL (9-20); Calcium 8.7 mg/dL (8.4-10.2); Carbon Dioxide 26 mmol/L (22-30); Chloride 104 mmol/L (98-107); Cholesterol 203 mg/dL (0-200); Estimated Glomerular Filt Rate > 60; Glucose 92 mg/dL (65-110); HDL Direct 50 mg/dL; Potassium 3.8 mmol/L (3.4-5.0); Sodium 139 mmol/L (137-145); Triglycerides 106 mg/dL (<150)
[2024-07-27 15:14] LABS: LDL Cholesterol Direct 123 mg/dL
[2024-07-27 15:31] LABS: Prostate Specific Antigen 0.8 ng/mL (< OR = 4.0)
== END 2024-07-27 08:00 | disposition home or self-care (01) ==
PROVIDERS: PCP Internal Medicine; Visit Provider Clinical Nurse Specialist
DX: Z12.5 Encounter for screening for malignant neoplasm of prostate (principal); E78.5 Hyperlipidemia, unspecified; M25.561 Pain in right knee; Z13.220 Encounter for screening for lipoid disorders; Z13.29 Encounter for screening for other suspected endocrine disorder
CPT/HCPCS: 36415; 80053; 80061; 84153; 85025; G0103

== ENCOUNTER 2024-08-02 15:52 | Outpatient (CLI) | payer MEDICARE, OTHER, SELFPAY ==
[2024-08-03 00:09] LABS: Anion Gap 9 mmol/L (4-12); Blood Urea Nitrogen 18 mg/dL (9-20); Calcium 9.6 mg/dL (8.4-10.2); Carbon Dioxide 25 mmol/L (22-30); Chloride 104 mmol/L (98-107); Estimated Glomerular Filt Rate > 60; Glucose 93 mg/dL (65-110); Magnesium 2.1 mg/dL (1.6-2.3); Potassium 3.8 mmol/L (3.4-5.0); Sodium 138 mmol/L (137-145)
== END 2024-08-02 15:53 | disposition home or self-care (01) ==
PROVIDERS: PCP Internal Medicine; Visit Provider Clinical Nurse Specialist
DX: E78.5 Hyperlipidemia, unspecified (principal); R00.2 Palpitations
CPT/HCPCS: 36415; 80048; 83735; 84443

== ENCOUNTER 2024-08-17 13:32 | Outpatient (CLI) | payer MEDICARE, OTHER, SELFPAY ==
--- NOTE | 2024-08-17 13:38 | ECHO_ITS ---
Patient Info Name: Jayme Cody Age: 64 years : 1960 Gender: Male Ht: 70 in Wt: 182 lbs BSA: 2.03 m2 HR: 55 bpm BP: 129 / 71 mmHg Heart Rhythm: Sinus Rhythm Technical Quality: Good Exam Date: 08/17/2024 1:50 PM Exam Location: Echo Lab Patient Status: Outpatient Admit Date: 08/17/2024 Staff Ordering Physician: Vickie Ramirez Spike Maker: Mary Kay Smith RDCS Attending Provider: Vickie Ramierz Referring Physician: James RODRIGUES; Exam Type: CA echo doppler color flow Study Info Indications R06.02 - Shortness of breath Complete two-dimensional, color flow and Doppler transthoracic echocardiogram is performed. Summary 1. Complete two-dimensional, color flow and Doppler transthoracic echocardiogram is performed. 2. Left ventricular chamber dimension is normal. 3. Left ventricular systolic function is normal, estimated at 65-70%. 4. There is mild concentric increased left ventricular wall thickness. 5. The left ventricular diastolic function is normal. 6. E/e' 7 is not elevated. 7. Left atrial chamber dimension is mildly enlarged. 8. There is mild aortic valve sclerosis. Left Ventricle E/e' 7 is not elevated. Left ventricular chamber dimension is normal. Left ventricular systolic function is normal, estimated at 65-70%. There is mild concentric increased left ventricular wall thickness. The left ventricular diastolic function is normal. Right Ventricle Right ventricular chamber dimension is normal. Right ventricular systolic function is normal. Left Atria Left atrial chamber dimension is mildly enlarged. Right Atria Right atrial chamber dimension is normal. Aortic Valve The aortic valve is trileaflet. There is mild aortic valve sclerosis. There is no aortic valve stenosis. There is no aortic valve regurgitation. Pulmonic Valve There is no pulmonic regurgitation. Mitral Valve There is no mitral valve stenosis. There is no mitral valve regurgitation. Tricuspid Valve There is no tricuspid valve regurgitation. Pericardium/Pleural There is no pericardial effusion. Inferior Vena Cava Normal inferior vena cava with >50% collapse upon inspiration consistent with normal right atrial pressure, 5 mmHg. Aorta The aortic root size at the sinus of Valsalva is normal. Left Ventricular Outflow Tract Name Value Normal LVOT 2D LVOT Diameter 2.0 cm LVOT Doppler LVOT Peak Gradient 3 mmHg LVOT Mean Gradient 1 mmHg LVOT VTI 16 cm LVOT VTI/AV VTI Ratio 0.6 LVOT Stroke Volume 50 ml LVOT CO 3.6 l/min LVOT CI 1.8 l/min/m2 Pulmonic Valve Name Value Normal RVOT Doppler RVOT Peak Gradient 2 mmHg PV Doppler
--- NOTE | 2024-08-20 16:16 | WPDHOLTEREM ---
Holter/Event Monitor Holter/Event Monitor Date of procedure: 08/17/24 Holter/Event Procedure: 48 Hr Holter Monitor Indications: SOB, Palpitations Conclusion: 1. 48 hour holter monitor on 08/17/24. 2. Predominant rhythm is sinus rhythm. HR range 50-138 bpm; average HR 86 bpm. 3. There are 224 premature supraventricular complexes, 20 supraventricular couplets, and 1 supraventricular triplet. There is 1 episode of atrial tachycardia at 133 bpm lasting 5 beats at 02:03. 4. There are 21,785 premature ventricular complexes, 1,228 ventricular couplets, 5 ventricular triplets, 43,375 ventricular bigeminy and 1,706 ventricular trigeminy. No ventricular tachycardia. 5. No sinoatrial or atrioventricular blocks. No significant pauses greater than 2 seconds. 6. No symptoms available for correlation.
== END 2024-08-17 13:33 | disposition home or self-care (01) ==
LOC: ANHCARD 13:33
PROVIDERS: PCP Internal Medicine; Visit Provider Clinical Nurse Specialist
DX: I35.8 Other nonrheumatic aortic valve disorders (principal)
CPT/HCPCS: 93225; 93226; 93306

== ENCOUNTER 2024-08-26 07:52 | Outpatient (CLI) | payer MEDICARE, OTHER, SELFPAY ==
--- NOTE | 2024-08-26 07:54 | EST_ITS ---
Patient Info Name: Jayme Cody Age: 64 years : 1960 Gender: Male Ht: 70 in Wt: 182 lbs BSA: 2.03 m2 HR: 58 bpm BP: 152 / 83 mmHg Heart Rhythm: Sinus Rhythm Exam Date: 08/26/2024 8:03 AM Exam Location: Echo Lab Patient Status: Outpatient Admit Date: 08/26/2024 Staff Ordering Physician: Vickie Ramirez Attending Provider: Vickie Ramirez Exercise Technologist: Angle Clay CT Exercise Physician: Faisal Orr DO Exam Type: CA stress test treadmill Study Info Indications R06.02 - Shortness of breath A treadmill exercise stress test was performed. Summary 1. 1. Negative Cristian exercise stress test for ischemic ST changes by ECG criteria. 2. 2. Good functional capacity, achieving 9.8 METs of workload. 3. 3. Baseline hypertension. 4. 4. Appropriate HR response to exercise. 5. 5. Appropriate HR recovery at 1 minute post exercise. 6. 6. No imaging with stress testing. 7. 7. Patient informed of the above results. Protocol: Cristian Stress ECG Details Stage: REST Duration (min): 1 min : 16 sec Speed (mph): 0.0 Grade (%): 0 HR (bpm): 62 SBP (mmHg): 152 DBP (mmHg): 83 METS: --- Stage: REST Duration (min): 5 min : 4 sec Speed (mph): 0.0 Grade (%): 0 HR (bpm): 68 SBP (mmHg): 152 DBP (mmHg): 83 METS: --- Stage: STAGE 1 Duration (min): 1 min : 0 sec Speed (mph): 1.7 Grade (%): 10 HR (bpm): 88 SBP (mmHg): 152 DBP (mmHg): 83 METS: --- Stage: STAGE 1 Duration (min): 2 min : 0 sec Speed (mph): 1.7 Grade (%): 10 HR (bpm): 93 SBP (mmHg): 152 DBP (mmHg): 83 METS: --- Stage: STAGE 1 Duration (min): 3 min : 0 sec Speed (mph): 1.7 Grade (%): 10 HR (bpm): 94 SBP (mmHg): 201 DBP (mmHg): 87 METS: --- Stage: STAGE 2 Duration (min): 1 min : 0 sec Speed (mph): 2.5 Grade (%): 12 HR (bpm): 105 SBP (mmHg): 183 DBP (mmHg): 86 METS: --- Stage: STAGE 2 Duration (min): 2 min : 0 sec Speed (mph): 2.5 Grade (%): 12 HR (bpm): 119 SBP (mmHg): 178 DBP (mmHg): 88 METS: --- Stage: STAGE 2 Duration (min): 3 min : 0 sec Speed (mph): 2.5 Grade (%): 12 HR (bpm): 120 SBP (mmHg): 178 DBP (mmHg): 88 METS: --- Stage: STAGE 3 Duration (min): 1 min : 0 sec Speed (mph): 3.4 Grade (%): 14 HR (bpm): 135 SBP (mmHg): 157 DBP (mmHg): 89 METS: --- Stage: STAGE 3 Duration (min): 1 min : 30 sec Speed (mph): 3.4 Grade (%): 14 HR (bpm): 141 SBP (mmHg): 157 DBP (mmHg): 89 METS: --- Stage: RECOVERY Duration (min): 0 min : 29 sec Speed (mph): 0.0 Grade (%): 0 HR (bpm): 136 SBP (mmHg): 157 DBP (mmHg): 89 METS: --- Stage: RECOVERY Duration (min): 1 min : 29 sec Speed (mph): 0.0 Grade (%): 0 HR (bpm): 84 SBP (mmHg): 157 DBP (mmHg): 89 METS: --- Stage: RECOVERY Duration (min): 2 min : 29 sec Speed (mph): 0.0 Grade (%): 0 HR (bpm): 71 SBP (mmH
== END 2024-08-26 07:53 | disposition home or self-care (01) ==
LOC: ANHCARD 07:55
PROVIDERS: PCP Internal Medicine; Visit Provider Clinical Nurse Specialist
DX: R06.02 Shortness of breath (principal); I10 Essential (primary) hypertension
CPT/HCPCS: 93017

== ENCOUNTER 2024-10-06 07:49 | Outpatient (CLI) | payer MEDICARE, OTHER, SELFPAY ==
[2024-10-26 18:36] VITALS: BMI 24.7
--- NOTE | 2024-10-26 18:36 | WPDSLEEPSTUD ---
Sleep Study Date of Study: 10/06/24 Ordering Provider: Faisal Orr DO Interpreting Physician: Gloria Stevens DO Sleep Study Type: Polysomnogram Height: 1.78 m Weight: 78.018 kg Body Mass Index: 24.7 Neck Circumference (inches): 16 Milo: 3 Reason for Sleep Study Heart palpitations Sleep History The patient is a 64-year-old male that had a sleep study ordered by his babbitt spinner for evaluation of sleep apnea. The patient denies awakening from sleep short of breath. He denies awakening at night with heartburn, belching or cough. He denies snoring. He denies having trouble sleeping when he has a cold. He denies waking up gasping for air throughout the night. He frequently has breathing problems at night observed by himself or others. He occasionally sweats excessively at night. He frequently has heart palpitations or irregular heartbeats during the night. He denies falling asleep during the day and while driving. He denies sleep paralysis, cataplexy and hypnagogic / hypnopompic hallucinations. He denies having trouble at school or work due to sleepiness. He denies feeling afraid of going to sleep. He denies having nightmares. He denies remembering his dreams. He denies having thoughts racing through his mind. He denies feeling sad, depressed or anxious. He rarely has muscular tension. He denies noticing parts of his body jerk. He denies kicking during the night. He occasionally has crawling and aching feelings in his legs and occasionally has leg pain during the night. He denies grinding his teeth during sleep and denies awakening with morning jaw pain. He is constantly bothered by pain during the day but rarely awakened by pain during the night. He occasionally wakes up feeling stiff in the morning. He rarely wakes up with sore or achy muscles. He occasionally wakes up with pain in the neck, spine and other joints. He goes to bed at 11:00 p.m. on both weekdays and weekends. It takes him a few minutes to fall asleep. He wakes up twice throughout the night to urinate and is able to fall back asleep within a few minutes. He wakes up at 6:30 a.m. on both weekdays and weekends. He typically gets 7 hours of sleep per night. He does not stay in bed after waking up in the morning. He currently lives with his . He denies consuming any caffeinated beverages within 2 hours of bedtime. He denies engaging in physical exercise before bedtime. He will watch television before falling asleep. He denies taking naps in afternoon or the evening. He consumes 1 caffeinated soda per day. He has 1 or 2 alcoholic beverages per day. He denies tobacco and recreational drug use. [facility] Past Medical History Medical History Arthritis Hyperlipidemia Joint pain Knee pain Peptic ulcer disease Rupture of ligament Surgical History Surgical History Status post surgical removal of malignant neoplasm of skin Minor Cancer removed 2013 Family History Family History Unknown Hypertension Social History Social History Smoking status: Never smoker Smoking end date: 11/24/77 Alcohol intake: never Drinks per week: 3 Alcohol use details: Pt drinks daily. Substance use: never Lack of Transportation: No Lack of Food: Never True Current Housing: I Have Housing Concerned About Future Housing: No Difficulty Paying Gas/Electric Bills: No Difficulty Paying for Meds: No Currently Unemployed: No Education: Trade/Vocational Certificate Difficulty w/ Childcare or Family Care: No Gender identity (if verbalized by the patient): Male Spiritual care concerns: No Medications Home Medications Medication Instructions Recorded Confirmed Type omeprazole magnesium 20 mg 20 mg PO DAILY 11/12/22 09/23/24 History tablet,delayed release (Prilosec OTC) acyclovir 400 mg tablet 400 mg PO QID PRN cold sores #30 08/02/24 09/23/24 Rx tabs celecoxib 200 mg capsule 200 mg PO DAILY #90 caps 08/02/24 09/23/24 Rx metoprolol succinate 25 mg 25 mg PO DAILY #30 tabs 09/07/24 09/23/24 Rx tablet,extended release 24 hr amoxicillin 500 mg tablet 500 mg PO Q12H #20 tabs 09/23/24 Rx methylprednisolone 4 mg tablets in See Rx Instructions PO PER PKG DIR 09/27/24 Rx a dose pack (Medrol (Ant)) #21 ea Sleep Procedure A full night polysomnogram using the Bueda multi-channel system recorded the standard physiologic parameters including EEG, EOG, submentalis EMG, anterior tibialis EMG, EKG, body position, nasal and oral airflow using nasal pressure sensor and thermistor.? Respiratory parameters of chest and abdominal movements were recorded with Respiratory Inductance Plethysmography belts. Oxygen saturation was recorded by pulse oximetry. Video monitoring was also performed. Sleep stages, periodic limb movements, and EEG arousals were scored in 30 second epochs according to the criteria of the AASM Scoring Manual. The Apnea-Hypopnea Index was calculated using CMS guidelines for definition of hypopnea with 4% O2 desaturations while scoring respiratory events. Sleep Architecture The total recording time was 411.4 minutes.? The total sleep time was 366.0 minutes. Sleep latency was 1.3 minutes. REM latency was 178.5 minutes. Sleep efficiency was 89.0%. The patient had 33 awakenings for an awakening index of 5.4. Wake after sleep onset time was 44.5 minutes. The patient spent 79.5 minutes, 21.7% of total sleep time in Stage N1. The patient spent 184.0 minutes, 50.3% in Stage N2. The patient spent 47.5 minutes, 13.0% in Stage N3. The patient spent 55.0 minutes, 15.0% in Stage REM sleep. Respiratory Analysis The patient had 13 hypopneas, 9 obstructive apneas and 3 central apneas for an overall Apnea Hypopnea Index of 4.1. The REM Apnea Hypopnea Index was 17.5. The NREM Apnea Hypopnea Index was 1.7. The patient had a Central Apnea Hypopnea Index of 0.5. There were 12 Respiratory Effort Related Arousals resulting in a RERA index of 2.0 events per hour. The Respiratory Disturbance Index is 6.1 events per hour. There was no evidence of Leo-Angel Respirations. Arousals There were 192 total arousals for an arousal index of 31.5. There were 86 spontaneous arousals for an index of 14.1. There were 18 arousals due to respiratory events for an index of 3.0. There were 57 arousals due to periodic limb movements for an index of 9.3.? There were 30 arousals due to isolated limb movements for an index of 4.9. Periodic Limb Movements The patient had 56 isolated limb movements with an index of 9.2. The patient had 136 periodic limb movements with an index of 22.3, which is elevated (normal < 15). Patient had a total of 192 limb movements with a total limb movement index of 31.5. Oximetry Data The patient had an average oxygen saturation of 93.8% in sleep with a minimum oxygen saturation of 87.0% and a maximum oxygen saturation of 97.0%. The patient had 17 oxygen desaturations that were 4% or greater resulting in an Oxygen Desaturation Index of 2.8.? The patient spent 0.5 minutes, 0.1% of total sleep time with an oxygen saturation below 88%. Snoring Profile Snoring was not present during this study. Cardiac Profile The EKG showed normal sinus rhythm with rare PACs.?The patient had an average pulse rate of 57.9 bpm with a minimum pulse of rate of 49.0 bpm and a maximum pulse rate of 87.0 bpm.? EEG Profile No signs of seizure activity seen. Assessment and Plan Assessment and Plan (1) PLMD (periodic limb movement disorder): Code(s): G47.61 - Periodic limb movement disorder Status: Acute Assessment and Plan: The patient had an overall AHI of 4.1 with desaturation down to 87%. This is not consistent with sleep disordered breathing. The patient had a significant number of limb movements during the study with the majority being periodic in nature. The patient's sleep history is somewhat suggestive of Restless Leg Syndrome. I recommend that the patient have a serum ferritin drawn for evaluation of iron deficiency anemia. If the patient has a serum ferritin less than 75 ng/mL, I recommend starting a daily iron supplement and a Vitamin C supplement for better absorption. If the serum ferritin is greater than 75 ng/mL, I recommend starting a dopamine agonist and titrating the dose until symptoms resolve. There are nonpharmacological methods to treat limb movements including daily exercise, stretching calf muscles before bed, avoiding excessive amounts of caffeine and alcohol, vitamin B supplementation, magnesium lotion massaged into legs before bed, and use of a weighted blanket. Data The data obtained during this sleep study is adequate for interpretation. Certification This sleep study has been reviewed by a board certified sleep medicine physician.
== END 2024-10-07 06:55 | disposition home or self-care (01) ==
LOC: ANHCSM 07:49
PROVIDERS: PCP Internal Medicine; Visit Provider Internal Medicine Cardiovascular Disease
DX: G47.10 Hypersomnia, unspecified (principal); G47.61 Periodic limb movement disorder
CPT/HCPCS: 95810